=== PATIENT | female | born 1985 | race Two or more races ===

== ENCOUNTER 2018-02-13 17:16 | Emergency (ER) | payer OTHER ==
[~2018-02-13] VITALS: Ht 170.2 cm; Wt 98.4 kg
--- NOTE | 2018-02-13 17:20 | NUR ---
ADMIT FEMALE PT IN RM 1B, AMBULATORY, WITH A C/O EPIGASTRIC PAIN, CHEST PAIN. EKG DONE. SEEN AND EXAMINED BY DR PAGAN WITH NEW ORDERS.
[2018-02-13 18:00] LABS: BASOPHILS % (AUTO) 0.3 % (0.0-2.0); EOSINOPHILS # (AUTO) 0.2 K/uL (0.0-0.7); HEMATOCRIT 40.7 % (31.2-41.9); HEMOGLOBIN 13.8 g/dL (10.9-14.3); MEAN CORPUSCULAR HEMOGLOBIN 29.6 uug (24.7-32.8); MEAN CORPUSCULAR HGB CONC 34 g/dL (32.3-35.6); MEAN CORPUSCULAR VOLUME 87.3 fL (75.5-95.3); MONOCYTES # (AUTO) 0.9 K/uL (2.0-10.0); MONOCYTES % (AUTO) 8.7 % (0.0-11.0); NEUTROPHILS # (AUTO) 6.8 K/uL (1.8-8.9); PLATELET COUNT (AUTO) 179 K/uL (179-408); RED BLOOD CELL COUNT(AUTO) 4.66 MIL/uL (3.63-4.92); WHITE BLOOD COUNT (AUTO) 9.9 K/uL (3.8-11.8)
[2018-02-13 18:06] LABS: CREATININE 0.8 mg/dL (0.6-1.3); POTASSIUM 3.9 mmol/L (3.5-5.1)
--- NOTE | 2018-02-13 18:45 | NUR ---
DR PAGAN CANCELLED THE [place] ORDER.
--- NOTE | 2018-02-13 19:00 | NUR ---
REPORT GIVEN TO MICHAEL KEVIN.
--- NOTE | 2018-02-13 19:34 | NUR ---
Patient discharged to home in stable conditon. Written and verbal after care instructions given. Patient verbalizes understanding of instructions. Pt ambulated out of ER with steady gait, no acute signs of distress, VSS, all belongings taken.
[2018-02-13 19:35] VITALS: BP 121/60
== END 2018-02-13 19:36 | disposition home or self-care (01) ==
LOC: ER 17:17
DX: R07.89 Other chest pain (principal)
CPT/HCPCS: 36415; 70030-TC; 71045; 85025; 93005; A4663